=== PATIENT | male | born 1940 | race Caucasian/White ===

== ENCOUNTER 2016-07-12 16:32 | Inpatient (IN) | payer OTHER, MEDICARE ==
--- NOTE | 2016-07-12 16:36 | EDPHY ---
H & P HPI/ROS: CHIEF COMPLAINT: Dizziness, traumatic chest pain HISTORY OF PRESENT ILLNESS: The patient is an anticoagulated 75 y/o male arriving via EMS complaining of worsening intermittent dizziness and frequent falls over the last 6 weeks. He says his symptoms worsened 2 days ago and he was evaluated here in the ED. His reports he fell several times yesterday and at least 4 times today. He complains additionally of chest pain from hitting a dresser the other day. His dizziness began around the same time he switched from Metoprolol to Carvedilol. It is primarily provoked by turning his head to the side or moving quickly. He describes the room spinning but also says it feels like "I'm going to black out." He has associated nausea during the worst dizziness. He also feels globally weak, but denies unilateral weakness or paresthesias. He denies trauma, headache, fever, or cough. 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 His dizziness currently improved upon my assessment. REVIEW OF SYSTEMS: Constitutional: denies: chills, fever, recent illness, recent injury EENTM: see HPI Respiratory: denies: cough, shortness of breath Cardiac: denies: chest pain, irregular heart rate, lightheadedness, palpitations Gastrointestinal/Abdominal: denies: abdominal pain, diarrhea, nausea, vomiting, blood streaked stools Genitourinary: denies: dysuria, frequency, hematuria, pain Musculoskeletal: denies: joint pain, muscle pain Skin: denies: lesions, rash, jaundice, bruising Neurological: see HPI Hematologic/Lymphatic: denies: blood clots, easy bleeding, easy bruising Immunologic/allergic: denies: HIV/AIDS, transplant PRIOR MEDICAL HISTORY: Atrial fibrillation - Coumadin, Amyloidosis - kidneys, hypertension, angina Prior medical records reviewed including ED visit 07/09/16 for dizziness. SOCIAL HISTORY: at bedside Flame Hardener: Dr. Mars EXAM: GENERAL: Well-appearing, well-nourished and in no acute distress. HEAD: Atraumatic, normocephalic. EYES: Pupils equal round and reactive to light, extraocular movements intact, sclera anicteric, conjunctiva are normal, some horizontal nystagmus at rest ENT: TMs normal, nares patent, oropharynx clear without exudates. Moist mucous membranes. NECK: Normal range of motion, supple without lymphadenopathy or JVD. LUNGS: Breath sounds clear to auscultation bilaterally and equal. No wheezes rales or rhonchi. HEART: Regular rate and rhythm without murmurs, rubs or gallops. ABDOMEN: Soft, nontender, normoactive bowel sounds. No guarding, no rebound. No masses appreciated. BACK: No CVA tenderness, no spinal tenderness, step-offs or deformities EXTREMITIES: Normal range of motion, no pitting or edema. No clubbing or cyanosis. NEUROLOGICAL: Cranial nerves II through XII grossly intact. Normal speech, normal gait. 5/5 strength, normal movement in all extremities, normal sensation , normal [id number], normal [id number] PSYCH: Normal mood, normal affect. SKIN: Warm, dry, normal turgor, no visible rashes or lesions. Bruising to right arm. Source: Patient, Family, EMS - Medical/Surgical History Hx Asthma: No Hx Chronic Respiratory Disease: No Hx Diabetes: No Hx Cardiac Disease: No Hx Renal Disease: Yes Hx Cirrhosis: No Hx Alcoholism: No Hx HIV/AIDS: No Hx Splenectomy or Spleen Trauma: No Other PMH: amloidosis - Social History Smoking Status: Never smoked Drug Use: None Constitutional: Initial Vital Signs Temperature (C) 36.7 C 07/12/16 17:00 Heart Rate 65 07/12/16 17:00 Respiratory Rate 18 07/12/16 17:00 Blood Pressure 139/81 H 07/12/16 17:00 O2 Sat (%) 95 07/12/16 17:00 O2 Delivery Mode Room Air Allergies/Adverse Reactions: No Known Allergies Allergy (Unverified 07/09/16 15:51) Home Medications: Medication Instructions Recorded Amiodarone HCl [Pacerone (*)] 200 mg PO DAILY 07/12/16 Aspirin EC [Aspirin EC 81 mg (*)] 81 mg PO DAILY 07/12/16 Atorvastatin Calcium [Lipitor 10 10 mg PO DAILY 07/12/16 mg (*)] Calcitriol [Calcitriol (*)] 0.25 mcg PO MWF@07/12/16 Carvedilol [Coreg] 12.5 mg PO DAILY18 07/12/16 Carvedilol [Coreg] 25 mg PO DAILY@07/12/16 Cholecalciferol Vit D3 [Vitamin D3 2,000 units PO HS 12/30/16 2000 units tab (OTC)] Esomeprazole Magnesium [Nexium 22.3 mg PO DAILY 07/12/16 24Hr] Furosemide [Lasix 40 MG (*)] 40 mg PO MWF@09 07/12/16 Herbals/Supplements -Info Only 1 ea PO AD 07/12/16 Isosorbide Mononitrate [Isosorbide 60 mg PO DAILY 07/12/16 Mononitrate ER] Lisinopril [Zestril 10 mg (*)] 10 mg PO DAILY 07/12/16 Methylcellulose (with Sugar) 1 tsp PO DAILY PRN 07/12/16 [Citrucel Powder 19 gm (RX)] Nitroglycerin [Nitrostat 0.4 mg 0.4 mg SL Q5M PRN 07/12/16 (*)] Ondansetron Odt [Zofran Odt 4 mg 4 mg PO Q4 PRN 07/12/16 (*)] Sodium Bicarbonate [Na Bicarb 650 650 mg PO BID 07/12/16 MG (RX)] Warfarin Sodium [Coumadin 5MG (*)] 2.5 mg PO MWF@07/12/16 Warfarin Sodium [Coumadin 5MG (*)] 5 mg PO SUTUTHSA@07/12/16 amLODIPine BESYLATE [Norvasc 10 mg 10 mg PO DAILY 07/12/16 (*)] Medical Decision Making - Diagnostics EKG Interpretation: The 12 lead EKG was interpreted by myself. Sinus rhythm rate 62 with first degree AV block. No ischemia. See hard copy and/or "tracemaster" electronic copy for interpretation. Imaging: Study: MRI of the: Brain Indication: Dizziness Results: MRI scan of the body parts was obtained. The results of the study are Negative MRI of the brain without contrast. The study was read by the radiologist, Dr. Reich. I viewed the images myself on the PACS system. ED Course/Re-evaluation: MDM: 1640: Performed Priscilla maneuver in attempt to improve symptoms. Plan for brain MRI. Plan for IV, EKG, labs including CBC, CHEM, PTPTT. Administered 4mg IV Zofran and 1L IV NS for symptoms. Creatinine elevated at 2.1, which is baseline for this patient. 1814: Reassessed patient. He reports he has not had a recurrent episode of dizziness since the Priscilla maneuver. He does tell me he thinks is hallucinating and seeing things on the ceiling. MRI pending. 191: MRI is negative. However, patient began to feel vertiginous again upon sitting up from the MRI table. Plan for 50mg PO Meclizine and admission. 1932: Spoke with Dr. Bang, hospitalist. He accepts admission for vertigo. Differential Diagnosis: Partial list of the Differential diagnosis considered include but were not limited to; vertigo, stroke, CVA, aneurysm, hemorrhage and although unlikely based on the history and physical exam, I also considered seizure, infection, head injury, arrhythmia, acute coronary disease. - Data Points Laboratory Results: Laboratory Results 07/13/16 04:50 07/13/16 04:50 07/13/16 04:50 PT 23.2 H SEC (12.0-15.0) INR 2.04 H (0.83-1.16) Sodium 133 L mEq/L (134-144) Potassium 4.0 mEq/L (3.5-5.2) Chloride 100 mEq/L (97-110) Carbon Dioxide 23 mEq/l (22-31) Anion Gap 10 mEq/L (8-16) BUN 20 mg/dL (7-23) Creatinine 1.7 H mg/dL (0.7-1.3) Estimated GFR 39 Glucose 83 mg/dL (70-100) Calcium 8.7 mg/dL (8.5-10.4) Total Bilirubin 1.3 mg/dL (0.1-1.4) AST 22 IU/L (17-59) ALT 32 IU/L (21-72) Alkaline Phosphatase 50 IU/L (38-126) Troponin I 0.015 ng/mL (0-0.034) Total Protein 5.6 L g/dL (6.3-8.2) Albumin 3.5 g/dL (3.5-5.0) Medications Given: Discontinued Medications Carvedilol (Coreg) 25 mg PO DAILY@08 DINO Stop: 01/09/17 07:59 Last Admin: 07/13/16 10:05 Dose: 25 mg Sodium Chloride (Ns) 1,000 mls @ 0 mls/hr IV ONCE ONE PRN Reason: Wide Open Stop: 12/30/16 16:53 Last Admin: 07/12/16 17:15 Dose: 1,000 mls Meclizine HCl (Meclizine Hcl) 50 mg PO EDNOW ONE Stop: 07/12/16 19:21 Last Admin: 07/12/16 19:42 Dose: 50 mg Meclizine HCl (Meclizine Hcl) 25 mg PO Q6 DINO Stop: 01/09/17 11:59 Last Admin: 07/13/16 15:48 Dose: Not Given Ondansetron HCl (Zofran) 4 mg IVP EDNOW ONE Stop: 07/12/16 16:53 Last Admin: 07/12/16 18:14 Dose: Not Given Promethazine HCl (Phenergan) 12.5 mg PO ONCE ONE Stop: 07/13/16 11:38 Last Admin: 07/13/16 15:47 Dose: Not Given Departure - Departure Disposition: [facility] Acute Clinical Impression: Vertigo Condition: Fair Report Scribed for: Teddy Clayton Report Scribed by: Jalyn Christensen Date of Report: 07/12/16 Time of Report: 16:47
[2016-07-12] MEDS ORDERED: ONDANSETRON 4 MG/2 ML VIAL IVP ONE (16:52)
[2016-07-12] MEDS ORDERED: NS 1,000 ML IV ONE (16:52)
[2016-07-12 17:04] LABS: ANION GAP 14 mEq/L (8-16); CALCIUM 9.7 mg/dL (8.5-10.4); CARBON DIOXIDE 26 mEq/l (22-31); CHLORIDE 95 mEq/L (97-110); CREATININE 2.1 mg/dL (0.7-1.3); GLOMERULAR FILTRATION RATE 31; GLUCOSE 102 mg/dL (70-100); SODIUM 135 mEq/L (134-144)
[2016-07-12 17:08] LABS: % IMMATURE GRANULYOCYTES 0.6 % (0.0-1.1); ABSOLUTE IMMATURE GRANULOCYTES 0.06 10^3/uL (0.00-0.10); ADD DIFF? NO; ADD MORPH? NO; ADD SCAN? NO; ATYPICAL LYMPHOCYTE FLAG 0 (0-99); FRAGMENT RBC FLAG 0 (0-99); HEMATOCRIT 46.9 % (40.0-51.0); HEMOGLOBIN 16.9 g/dL (13.7-17.5); LEFT SHIFT FLG 0 (0-99); LIPEMIA HEMOLYSIS FLAG 90 (0-99); MEAN CELL HEMOGLOBIN 33.8 pg (27.9-34.1); MEAN CELL VOLUME 93.8 fL (81.5-99.8); MEAN PLATELET VOLUME 9.5 fL (8.7-11.7); PLATELET CLUMPS FLAG 0 (0-99); PLATELET COUNT 183 10^3/uL (150-400); RED CELL DISTRIBUTION WIDTH 12.6 % (11.5-15.2)
--- NOTE | 2016-07-12 17:11 | CPEKG ---
Heart Rate: 61 RR Interval: 984 P-R Interval: 220 QRSD Interval: 98 QT Interval: 448 QTC Interval: 452 P Stevens: 31 QRS Stevens: 8 T Wave Stevens: 48 EKG Severity - ABNORMAL ECG - EKG Impression: SINUS RHYTHM EKG Impression: FIRST DEGREE AV BLOCK EKG Impression: LOW VOLTAGE IN FRONTAL LEADS Electronically Signed By: Teddy Clayton 12-Jul-2016 17:13:23
[2016-07-12 17:15] LABS: TROPONIN I < 0.012 ng/mL (0-0.034)
[2016-07-12 17:38] LABS: APTT 34.5 SEC (23.0-38.0); INR 1.83 (0.83-1.16); PROTIME(PATIENT) 21.2 SEC (12.0-15.0)
--- NOTE | 2016-07-12 19:14 | MR ---
MRI of the Brain (Without Contrast) July 12, 2016 Clinical Indication: Vertigo. Possible CVA.. Technique: T1-weighted images were acquired axially and sagittally from the foramen magnum to the ve rtex. Axial FLAIR, fast T2-weighted, and diffusion-weighted axial images were obtained without contr ast. Findings: The ventricles, cisterns, and sulci are normal without atrophy, hydrocephalus, midline bryson ft, herniation, or epidural/subdural hematomas. Mild white matter microvascular ischemic gliosis is c ompatible with age. No intracranial hemorrhage or masses. Diffusion-weighted sequence demonstrates no acute infarct. Cerebellar tonsils are in normal position. Pituitary gland is normal in size. Normal signal flow void in the superior sagittal sinus, basilar artery, and bilateral internal carotid arter ies indicating patency. Paranasal sinuses and mastoid air cells are clear. Impression: Negative MRI of the brain without contrast. Results called to Dr. Clayton at 7:10 p.m.
[2016-07-12] MEDS ORDERED: MECLIZINE HCL 25 MG TAB PO ONE (19:20)
[2016-07-12] MEDS ORDERED: ONDANSETRON DISINTEGRATING 4 MG TAB PO PRN (19:48)
[2016-07-12] MEDS ORDERED: ACETAMINOPHEN 325 MG TAB PO PRN (19:48)
[2016-07-12] MEDS ORDERED: MECLIZINE HCL 25 MG TAB PO PRN ×2 (19:50→21:03)
[2016-07-12] MEDS ORDERED: DIAZEPAM 2 MG TAB PO PRN (21:02)
--- NOTE | 2016-07-12 21:12 | US ---
Bilateral Duplex Carotid Sonography Clinical Indications: Possible CVA versus TIA. Technique: The cervical portions of the carotid and vertebral arteries were imaged and interrogated by color and pulsed Doppler. Spectral analysis was performed. Findings Right Carotid: The common carotid artery, bifurcation, and origin of the internal and external carot id artery are well imaged. Doppler velocity estimates and color Doppler spectra are normal. Maximum peak systolic velocity in the right internal carotid artery is 48 cm/sec. No evidence of flow-limit ing stenosis. Left Carotid: The common carotid artery, bifurcation, and origin of the internal and external caroti d artery are well imaged. Hypoechoic intraluminal material involves the left carotid bifurcation and proximal ICA, with the sonographic features suggestive of a large volume of soft plaque versus focal hemorrhage such as localized dissection. There is moderate luminal narrowing of the left proximal I CA, without significant velocity change to suggest flow-limiting disease. Maximum peak systolic [place] in the left ICA is 85 cm/sec. Vertebral Arteries: Antegrade flow is shown by pulsed Doppler of each vertebral artery. Impression: Prominent hypoechoic material involving the left carotid bulb and proximal ICA suggestiv e of soft plaque or hemorrhage potentially related to focal dissection. Secondary moderate luminal na rrowing is present, without Doppler velocity change. Consider CT angiography acutely or follow-up Doppler sonogram for further characterization of these f indings, as clinically appropriate. Measurement of carotid stenosis is based on velocity parameters that correlate the residual internal carotid diameter with [place] Symptomatic Carotid Endarterectomy Trial (NASCET) based stenosis levels.
--- NOTE | 2016-07-12 22:22 | PDGENHP ---
History and Physical - Chief Complaint Acute dizziness - History of Present Illness PCP: Dr. Nguyen Computer Operations Technician: Dr. Mars Carbon Furnace Operator: Dr. Horne HPI: 75-year-old male presents with acute dizziness characterized as a room spinning sensation and feeling like he is going to blackout with associated nausea and weakness as well as resultant falls. He reports that his symptoms began approximately 2 weeks ago and occurred in the context of recent medication adjustments of his antihypertensives under the direction Dr. Horne. He denies any preceding URI symptoms or any other illnesses. His dizziness is exacerbated by standing upright, head movements, movement. His dizziness is somewhat alleviated by remaining still and supine. He was evaluated for these symptoms by Dr. Nguyen as well as our emergency department and he was prescribed Zofran which has not particularly modified his symptoms. He reports that his symptoms have result in significant falls and chest trauma, resulting in bruises on his chest and his arms as well as pain located on his left anterior chest wall. History Information - Allergies/Home Medication List Allergies/Adverse Reactions: No Known Allergies Allergy (Unverified 07/09/16 15:51) Home Medications: Amiodarone HCl [Pacerone (*)] 200 mg PO DAILY 07/12/16 [Last Taken 07/11/16] Aspirin EC [Aspirin EC 81 mg (*)] 81 mg PO DAILY 07/12/16 [Last Taken 07/11/16] Atorvastatin Calcium [Lipitor 10 mg (*)] 10 mg PO DAILY 07/12/16 [Last Taken ] Calcitriol [Calcitriol (*)] 0.25 mcg PO MWF@07/12/16 [Last Taken 07/10/16] Carvedilol [Coreg] 12.5 mg PO DAILY18 07/12/16 [Last Taken 07/11/16] Carvedilol [Coreg] 25 mg PO DAILY@08 07/12/16 [Last Taken 07/11/16] Cholecalciferol Vit D3 [Vitamin D3 2000 units tab (OTC)] 2,000 units PO HS 07/12 [Last Taken 07/11/16] Esomeprazole Magnesium [Nexium 24Hr] 22.3 mg PO DAILY 07/12/16 [Last Taken 07/11] Furosemide [Lasix 40 MG (*)] 40 mg PO MWF@07/12/16 [Last Taken 07/10/16] Herbals/Supplements -Info Only 1 ea PO AD 07/12/16 [Last Taken Unknown] Isosorbide Mononitrate [Isosorbide Mononitrate ER] 60 mg PO DAILY 07/12/16 [ Last Taken 07/11/16] Lisinopril [Zestril 10 mg (*)] 10 mg PO DAILY 07/12/16 [Last Taken 07/11/16] Methylcellulose (with Sugar) [Citrucel Powder 19 gm (RX)] 1 tsp PO DAILY PRN [Last Taken Unknown] Nitroglycerin [Nitrostat 0.4 mg (*)] 0.4 mg SL Q5M PRN 07/12/16 [Last Taken Unknown] Ondansetron Odt [Zofran Odt 4 mg (*)] 4 mg PO Q4 PRN 07/12/16 [Last Taken Unknown] Sodium Bicarbonate [Na Bicarb 650 MG (RX)] 650 mg PO BID 07/12/16 [Last Taken ] Warfarin Sodium [Coumadin 5MG (*)] 2.5 mg PO MWF@21 07/12/16 [Last Taken ] Warfarin Sodium [Coumadin 5MG (*)] 5 mg PO SUTUTHSA@21 07/12/16 [Last Taken ] amLODIPine BESYLATE [Norvasc 10 mg (*)] 10 mg PO DAILY 07/12/16 [Last Taken ] I have personally reviewed and updated: family history, medical history, social history, surgical history - Past Medical History atrial fibrillation, hypertension Additional medical history: Amyloid nephropathy, 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, currently with chronic kidney disease stage 3 with baseline creatinine 1.9-2.4 - Surgical History Reports: no pertinent surgical hx - Family History Additional family history: No family history of neurologic disorders - Social History Smoking Status: Never smoked Alcohol Use: None Drug Use: None Additional social history: Normally physically independent but has been somewhat limited recently secondary to symptoms Review of Systems ROS: 10pt was reviewed & negative except for what was stated in HPI & below Constitutional: Reports: weakness Gastrointestinal: Reports: nausea Neurological: Reports: other (Dizziness) Physical Exam Temp Pulse Resp BP Pulse Ox 37.3 C 64 16 149/85 H 14 L 07/12/16 21:46 07/12/16 21:46 07/12/16 21:46 07/12/16 21:46 07/12/16 21:46 Constitutional: no apparent distress, appears nourished, not in pain, uncomfortable Eyes: PERRL, anicteric sclera, EOMI Ears, Nose, Mouth, Throat: hearing normal, no oral mucosal ulcers, other (Tacky mucous membranes, significant amount of cerumen in right ear without visible fluid posterior to the memory) Cardiovascular: regular rate and rhythym, no murmur, rub, or gallop, No irregularly irregular, No tachycardia, No edema Respiratory: no respiratory distress, no rales or rhonchi, clear to auscultation Gastrointestinal: normoactive bowel sounds, soft, non-tender abdomen, no palpable masses Skin: other (Bruises over the left chest and right upper extremity without surrounding erythema) Musculoskeletal: other (Tenderness over the left ribs without any bony abnormalities) Neurologic: AAOx3, sensation intact bilaterally, other (Right-sided nystagmus horizontal), No weakness (Motor 5/5 bilateral upper and lower extremities), No facial droop Psychiatric: interacting appropriately, not anxious, not encephalopathic, thought process linear Lab Data & Imaging Review 07/12/16 16:40 07/12/16 16:40 WBC 10.70 10^3/uL (3.80-9.50) H 07/12/16 16:40 RBC 5.00 10^6/uL (4.40-6.38) 07/12/16 16:40 Hgb 16.9 g/dL (13.7-17.5) 07/12/16 16:40 Hct 46.9 % (40.0-51.0) 07/12/16 16:40 MCV 93.8 fL (81.5-99.8) 07/12/16 16:40 MCH 33.8 pg (27.9-34.1) 07/12/16 16:40 MCHC 36.0 g/dL (32.4-36.7) 07/12/16 16:40 RDW 12.6 % (11.5-15.2) 07/12/16 16:40 Plt Count 183 10^3/uL (150-400) 07/12/16 16:40 MPV 9.5 fL (8.7-11.7) 07/12/16 16:40 Neut % (Auto) 81.1 % (39.3-74.2) H 07/12/16 16:40 Lymph % (Auto) 8.9 % (15.0-45.0) L 07/12/16 16:40 [place] % (Auto) 8.8 % (4.5-13.0) 07/12/16 16:40 Eos % (Auto) 0.3 % (0.6-7.6) L 07/12/16 16:40 Baso % (Auto) 0.3 % (0.3-1.7) 07/12/16 16:40 Nucleat RBC Rel Count 0.0 % (0.0-0.2) 07/12/16 16:40 Absolute Neuts (auto) 8.69 10^3/uL (1.70-6.50) H 07/12/16 16:40 Absolute Lymphs (auto) 0.95 10^3/uL (1.00-3.00) L 07/12/16 16:40 Absolute Monos (auto) 0.94 10^3/uL (0.30-0.80) H 07/12/16 16:40 Absolute Eos (auto) 0.03 10^3/uL (0.03-0.40) 07/12/16 16:40 Absolute Basos (auto) 0.03 10^3/uL (0.02-0.10) 07/12/16 16:40 Absolute Nucleated RBC 0.00 10^3/uL (0-0.01) 07/12/16 16:40 Immature Gran % 0.6 % (0.0-1.1) 07/12/16 16:40 Immature Gran # 0.06 10^3/uL (0.00-0.10) 07/12/16 16:40 PT 21.2 SEC (12.0-15.0) H 07/12/16 16:40 INR 1.83 (0.83-1.16) H 07/12/16 16:40 APTT 34.5 SEC (23.0-38.0) 07/12/16 16:40 Sodium 135 mEq/L (134-144) 07/12/16 16:40 Potassium 4.0 mEq/L (3.5-5.2) 07/12/16 16:40 Chloride 95 mEq/L (97-110) L 07/12/16 16:40 Carbon Dioxide 26 mEq/l (22-31) 07/12/16 16:40 Anion Gap 14 mEq/L (8-16) 07/12/16 16:40 BUN 25 mg/dL (7-23) H 07/12/16 16:40 Creatinine 2.1 mg/dL (0.7-1.3) H 07/12/16 16:40 Estimated GFR 31 07/12/16 16:40 Glucose 102 mg/dL (70-100) H 07/12/16 16:40 Calcium 9.7 mg/dL (8.5-10.4) 07/12/16 16:40 Troponin I < 0.012 ng/mL (0-0.034) 07/12/16 16:40 Visualized and Interpreted EKG results: Yes EKG additional interpertation: First-degree AV block, low voltage in frontal leads Assessment & Plan Assessment: 75-year-old male presents with acute vertiginous symptoms suspected to be secondary to BPPV versus labyrinthitis in the setting of chronic kidney disease stage 3 and known amyloid disorder Plan: 1. Suspected BPPV. Acute, new problem this provider, further workup indicated. Evidenced by positive [place]-Hallpike plus positional vertigo -get carotid and posterior circulation ultrasounds -check orthostatics given his history of medication adjustments in the context of his symptom onset -trial meclizine and Valium for symptom relief as well as scheduled cetirizine -Zofran and Phenergan for nausea relief -physical therapy with Priscilla maneuver if obtainable -posterior CVA ruled out with MRI 2. Chronic kidney disease stage 3. Secondary to amyloid, baseline 1.9-2.4 -continue to monitor creatinine level 3. Chronic hypertension. Continue home medications, continue to monitor blood pressure, check orthostatics as outlined above 4. Atrial fibrillation. Unclear type, continue home medications 5. Leukocytosis. Unclear etiology, may be reactive in the setting of recent viral illness versus secondary to his amyloid disease, may require outpatient Hematology consultation if this is been a chronic on investigated issue Diet. Regular Prophylaxis. Moderate risk, heparin subcu Code. Full Disposition. Anticipated discharge is 07/13/2016, pending further workup and stabilization of above. I have discussed the patient's presentation with Dr. Clayton, he reports he the patient is unable to safely ambulate and he requires significant assistance in the emergency department, remains a high fall risk and must be observed overnight. I reviewed outside records including 07/09/[address] Rudy Hernandez and his impression of the patient was also BPPV versus viral URI, prescribed Zofran.
[2016-07-12] MEDS: CETIRIZINE 10 MG TAB PO SCH (22:23)
[2016-07-12] MEDS ORDERED: [UNRECOGNIZED DRUG - OTHER] PO PRN (22:30)
[2016-07-12] MEDS ORDERED: WARFARIN SODIUM 5 MG TAB PO SCH (22:30)
[2016-07-12] MEDS ORDERED: METHYLCELLULOSE PO PRN (22:30)
[2016-07-12] MEDS ORDERED: NITROGLYCERIN 0.4 MG BTL SL PRN (22:30)
[2016-07-12] MEDS ORDERED: NON-FORMULARY NEW DRUG (Carvedilol [Coreg] 12.5 MG) PO SCH (22:30)
[2016-07-12] MEDS ORDERED: Herbals/Supplements -Info Only PO SCH (22:30)
[2016-07-12] MEDS ORDERED: BENEFIBER/NUTRISOURCE FIBER PKT 1 EACH PO PRN (22:43)
[2016-07-12] MEDS: SODIUM BICARBONATE 650 MG TAB PO SCH (23:32)
[2016-07-13 05:18] LABS: ABSOLUTE IMMATURE GRANULOCYTES 0.09 10^3/uL (0.00-0.10); ADD DIFF? NO; ADD MORPH? NO; ADD SCAN? NO; ATYPICAL LYMPHOCYTE FLAG 0 (0-99); FRAGMENT RBC FLAG 0 (0-99); HEMATOCRIT 44.4 % (40.0-51.0); HEMOGLOBIN 16.2 g/dL (13.7-17.5); LEFT SHIFT FLG 0 (0-99); LIPEMIA HEMOLYSIS FLAG 90 (0-99); MEAN CELL HEMOGLOBIN 34.2 pg (27.9-34.1); MEAN CELL HEMOGLOBIN CONCENTR. 36.5 g/dL (32.4-36.7); MEAN CELL VOLUME 93.7 fL (81.5-99.8); MEAN PLATELET VOLUME 9.1 fL (8.7-11.7); PLATELET CLUMPS FLAG 0 (0-99); PLATELET COUNT 148 10^3/uL (150-400); RED BLOOD CELL COUNT 4.74 10^6/uL (4.40-6.38); RED CELL DISTRIBUTION WIDTH 12.1 % (11.5-15.2)
[2016-07-13 05:32] LABS: INR 2.04 (0.83-1.16); PROTIME(PATIENT) 23.2 SEC (12.0-15.0)
[2016-07-13 06:40] LABS: ALANINE AMINOTRANSFERASE 32 IU/L (21-72); ALBUMIN 3.5 g/dL (3.5-5.0); ALKALINE PHOSPHATASE 50 IU/L (38-126); ANION GAP 10 mEq/L (8-16); ASPARTATE AMINOTRANSFERASE 22 IU/L (17-59); BILIRUBIN,TOTAL 1.3 mg/dL (0.1-1.4); CALCIUM 8.7 mg/dL (8.5-10.4); CARBON DIOXIDE 23 mEq/l (22-31); CHLORIDE 100 mEq/L (97-110); CREATININE 1.7 mg/dL (0.7-1.3); GLOMERULAR FILTRATION RATE 39; GLUCOSE 83 mg/dL (70-100); SODIUM 133 mEq/L (134-144); TOTAL PROTEIN 5.6 g/dL (6.3-8.2)
[2016-07-13 06:51] LABS: TROPONIN I 0.015 ng/mL (0-0.034)
[2016-07-13] MEDS ORDERED: CARVEDILOL 25 MG TAB PO SCH ×2 (08:00→15:35)
[2016-07-13] MEDS ORDERED: CARVEDILOL 25 MG PO SCH (08:00)
[2016-07-13] MEDS ORDERED: NON-FORMULARY NEW DRUG (Isosorbide Mononitrate [Isosorbide Mononitrate Er] 60 MG) PO SCH (09:00)
[2016-07-13] MEDS ORDERED: NON-FORMULARY NEW DRUG (Esomeprazole Magnesium [Nexium 24hr] 22.3 MG) PO SCH (09:00)
[2016-07-13] MEDS: SODIUM BICARBONATE 650 MG TAB PO SCH ×2 (11:17→21:19)
[2016-07-13] MEDS: LISINOPRIL 10 MG TAB PO SCH (11:17)
[2016-07-13] MEDS: ATORVASTATIN CALCIUM 10 MG TAB PO SCH (11:18)
[2016-07-13] MEDS: ISOSORBIDE MONONITRATE 30 MG TAB.SR PO SCH (11:18)
[2016-07-13] MEDS: PANTOPRAZOLE SODIUM 40 MG TAB PO SCH (11:19)
[2016-07-13] MEDS: ASPIRIN EC 81 MG TAB PO SCH (11:20)
[2016-07-13] MEDS ORDERED: PROMETHAZINE HCL 25 MG TAB PO ONE (11:37)
[2016-07-13] MEDS ORDERED: MECLIZINE HCL 25 MG TAB PO SCH (12:00)
[2016-07-13] MEDS: AMIODARONE HCL 200 MG TAB PO SCH (12:25)
--- NOTE | 2016-07-13 13:13 | HOSPPROG ---
Hospitalist Progress Note Assessment/Plan: 75-year-old male presents with acute vertiginous symptoms in the setting of chronic kidney disease stage 3 and known amyloid disorder. This is my first encounter with the patient. Chart reviewed. Discussed with Dr. Krueger. Plan: 1. Dizziness -carotid and posterior circulation ultrasounds are abnormal, reviewed with Dr. Krueger - will obtain MRA of the head and neck secondary to chronic kidney disease -check orthostatics given his history of medication adjustments in the context of his symptom onset -meclizine and Valium have not provided symptom relief -Zofran and Phenergan for nausea relief -physical therapy with Priscilla maneuver, failed see report -posterior CVA ruled out with MRI 2. Chronic kidney disease stage 3. Secondary to amyloid, baseline 1.9-2.4 -continue to monitor creatinine level -creatinine 1.7 today 3. Chronic hypertension. Continue home medications, continue to monitor blood pressure, check orthostatics as outlined above -consider cardiology consult patient's primary nutritionists is Jeferson Mars 4. Atrial fibrillation. Unclear type, continue home medications 5. Leukocytosis. Resolved 6. Left hand numbness -intermittent -worse when sitting at the edge of the bed Diet. Renal Prophylaxis. Moderate risk, on Coumadin and aspirin Code. Full Disposition. Admit to inpatient status Patient requires more aggressive in-house evaluation Consult Dr. Krueger of Neurology MRA head neck reviewed with pt and family Subjective: Feels terrible. Still feeling dizzy and weak. No nausea. No pain. C/ O left hand tingling. Objective: Vital Signs Temp Pulse Resp BP Pulse Ox 38.0 C 67 18 117/68 91 L 07/13/16 11:23 07/13/16 11:23 07/13/16 11:23 07/13/16 12:25 07/13/16 11:23 Laboratory Results 07/13/16 04:50 07/13/16 04:50 07/12/16 07/13/16 07/14/16 05:59 05:59 05:59 Intake Total 1000 Output Total 150 Balance 850 PT 23.2 SEC (12.0-15.0) H 07/13/16 04:50 INR 2.04 (0.83-1.16) H 07/13/16 04:50 - Physical Exam Constitutional: not in pain, chronically ill appearing, uncomfortable Eyes: PERRL, anicteric sclera, EOMI Ears, Nose, Mouth, Throat: moist mucous membranes, hearing normal, ears appear normal Cardiovascular: regular rate and rhythym, No JVD, No edema Respiratory: no respiratory distress, no rales or rhonchi, reduced air movement Gastrointestinal: normoactive bowel sounds, No tenderness, No ascites Skin: warm, normal color, No erythema Musculoskeletal: normal joint ROM, abnormal gait, generalized weakness Neurologic: AAOx3, numbness Psychiatric: interacting appropriately, not encephalopathic, thought process linear ICD10 Worksheet Patient Problems: Problems Problem Status Diagnosed Vertigo Acute
[2016-07-13] MEDS ORDERED: MECLIZINE HCL 25 MG TAB PO PRN (14:21)
--- NOTE | 2016-07-13 15:23 | GCON ---
[f rep st] CONSULTATION NEUROLOGY CONSULT CHIEF COMPLAINT: Abnormal carotid ultrasound. HISTORY OF PRESENT ILLNESS: The patient is a very pleasant 75-year-old gentleman who has a fairly complex medical history including amyloid disease causing chronic kidney disease. He has atrial fibrillation, on chronic anticoagulation. In the patient's own words, he began feeling chronically nauseated around 2 weeks ago when his metoprolol was switched to carvedilol. He states almost immediately after this switch in antihypertensive medication he began feeling generally bad with nausea and decreased appetite with an orthostatic component. He specifically endorsed feeling more dizzy when he stands up, and it is definitely improved when lying supine. He saw his physician as an outpatient for these symptoms. His carvedilol was decreased apparently, but the symptoms persisted and ultimately was sent to the emergency department. He had an MRI brain performed yesterday, which showed no acute infarct. It was fairly unremarkable for age and known medical history. The main reason for consultation is the patient's carotid ultrasound, which reported prominent hypoechoic material involving the left carotid bulb and proximal ICA, suggestive of a soft plaque or hemorrhage potentially related to focal dissection. Secondary moderate luminal narrowing was present without Doppler velocity change. The patient does not have any focal neurologic symptoms by way of his history. He has primarily "nausea." No lateralized weakness, numbness, language or vision symptoms. REVIEW OF SYSTEMS: A 10-point review of systems was performed and only pertinents in the HPI. PAST MEDICAL HISTORY, SOCIAL HISTORY, FAMILY HISTORY, HOME MEDICATIONS, AND ALLERGIES: Please refer to the admitting history and physical. PHYSICAL EXAM: VITAL SIGNS: The patient did have orthostatic vital signs taken. While lying down, his blood pressure was 157/93 with a heart rate of 83 ; when sitting, it was 129/85 with a heart rate of 86; and, when standing up, it was 116/81 with a heart rate of 102, consistent with abnormal orthostatics with greater than a 40 mmHg drop in systolic pressure from lying to standing. Temperature 37.4, respiration rate 18. GENERAL: No acute distress. Very pleasant. NEUROLOGIC EXAM: HIGHER MENTAL FUNCTION: Awake and alert. No aphasia. Names 5/5. Repeats 5/5. Follows commands 5/5. CRANIAL NERVES: Normal 2 through 7, 11, and 12. MOTOR: Normal strength, tone, and deep tendon reflexes throughout. No pronator drift. SENSORY: Normal to light touch in all 4 extremities. COORDINATION: Normal yjukye-kdtl-lxoacv and veyx-xf-oemj bilaterally. IMPRESSION AND PLAN: 1. Abnormal carotid ultrasound. 2. Chronic atrial fibrillation, on anticoagulation with therapeutic INR of 2.04. 3. Nausea. 4. Orthostatic hypotension. My overall impression is that the patient's presenting symptomatology is due to orthostatic hypotension from his change from metoprolol to carvedilol. He has positive orthostatics here in the hospital. In the background, the patient has chronic atrial fibrillation, is on warfarin with a therapeutic INR of 2.04. In addition, the patient is on aspirin daily with his anticoagulant. The primary reason for consultation is abnormal carotid ultrasound. This certainly needs to be followed up on. We have ordered a stat MRA of the head and neck. He is fully anticoagulated in any case, in terms of possible incidental dissection. I have discussed the plan with the patient and his primary hospitalist. We will be in close touch regarding the MRA results. We certainly may consult with Vascular Surgery/General Surgery depending on what we find to give further recommendations. Otherwise, he will continue his medications as prescribed. Lastly, we discussed touching base with Cardiology to adjust his antihypertensive medications. No further recommendations for now. We will follow up on the above as outlined. Thank you for this consultation. /[id number]/MODL MTDD
[2016-07-13] MEDS ORDERED: CARVEDILOL 6.25 MG TAB PO SCH (18:00)
--- NOTE | 2016-07-13 18:36 | MR ---
MR Arteriogram of the [place] Clinical Indications: 75-year-old male with medically-controlled hypertension who had some dizziness and visual impairment with negative MR imaging of the brain on July 12, 2016; however, carotid du plex sonography suggested some hypoechoic material involving the left carotid bulb and the proximal i nternal carotid artery (without a Doppler velocity change). Rule out possible stenosis or a localized dissection. The patient has impaired renal function, and cannot have IV contrast media. Technique: A luga-ei-gyvhfl gradient echo technique was used for thin axial images at the skull base for evaluation of the major vessels of the [place]. A three-dimensional technique was used , and images were manipulated by the radiologist at the computer workstation. Findings: The major vessels of the [place] are adequately displayed, demonstrating no eviden ce of an aneurysm, vascular malformation, a flow-limiting stenosis, or an occlusion. Impression: Negative MRA of the [place]. MR Angiogram of the Neck without Contrast Technique: IV contrast was withheld because of the patient's renal insufficiency. Sagittal 2-D phase contrast manufacturing laborer images were initially acquired. T2 FSE fat-saturated "black blood for dissection" axi al images were acquired, as well as coronal "Inhance 3-D velocity" sequences were obtained, and maxim al intensity pixel projection (MIPP) images were manipulated by the radiologist at the computer works tation. Axial DWI sequences of the brain were also acquired. Findings: There is suboptimal assessment of the origins of the great vessels off the aortic arch. Th e common carotid arteries and the vertebral arteries are patent, and the common carotid bifurcations demonstrate no evidence of a flow-limiting stenosis or occlusion. However, on axial series 7, images 12-14, there is an asymmetric crescentic hyperintense signal in the wall surrounding a short segment of the left carotid bulb and the proximal internal carotid artery, and a regional nonstenosing intim al flap cannot therefore not be excluded. The vertebral arteries are patent, without evidence of obst ruction or dissection. A sagittal FSE 3-D plane T2 weighted image reveals some mild degenerative cent ral canal stenosis at C5-C6 and trace anterolisthesis at C7-T1. Multilevel degenerative disk desiccat ion is observed. On axial series 4, images 29-30, there are a couple of punctate foci of restricted d iffusion in the inferomedial left cerebellum, suggestive of lacunar infarcts. Impression: 1. MRA of the cervical carotids and vertebrals demonstrates no evidence of a flow-limiting stenosis, although there is some abnormal arterial signal intensity suggestive of a small focal intramural bridget tamiko involving the left carotid bulb and the proximal left internal carotid artery at the site of the recently-seen duplex carotid sonographic abnormality. 2. Suspect tiny lacunar infarcts in the inferomedial left cerebellum. I attempted to convey this information to Dr. Pepe Krueger, and was able to communicate it directly to the hospitalist Dr. Mario Castañeda at 6:30 p.m. on July 13, 2016. Measurements of carotid stenosis is based on the residual internal carotid diameter with [place] an Symptomatic Carotid Endarterectomy Trial (NASCET) based stenosis levels.
--- NOTE | 2016-07-13 18:36 | MR ---
MR Arteriogram of the [place] Clinical Indications: 75-year-old male with medically-controlled hypertension who had some dizziness and visual impairment with negative MR imaging of the brain on July 12, 2016; however, carotid du plex sonography suggested some hypoechoic material involving the left carotid bulb and the proximal i nternal carotid artery (without a Doppler velocity change). Rule out possible stenosis or a localized dissection. The patient has impaired renal function, and cannot have IV contrast media. Technique: A bsfo-za-zjwrrk gradient echo technique was used for thin axial images at the skull base for evaluation of the major vessels of the [place]. A three-dimensional technique was used , and images were manipulated by the radiologist at the computer workstation. Findings: The major vessels of the [place] are adequately displayed, demonstrating no eviden ce of an aneurysm, vascular malformation, a flow-limiting stenosis, or an occlusion. Impression: Negative MRA of the [place]. MR Angiogram of the Neck without Contrast Technique: IV contrast was withheld because of the patient's renal insufficiency. Sagittal 2-D phase contrast furniture mover images were initially acquired. T2 FSE fat-saturated "black blood for dissection" axi al images were acquired, as well as coronal "Inhance 3-D velocity" sequences were obtained, and maxim al intensity pixel projection (MIPP) images were manipulated by the radiologist at the computer works tation. Axial DWI sequences of the brain were also acquired. Findings: There is suboptimal assessment of the origins of the great vessels off the aortic arch. Th e common carotid arteries and the vertebral arteries are patent, and the common carotid bifurcations demonstrate no evidence of a flow-limiting stenosis or occlusion. However, on axial series 7, images 12-14, there is an asymmetric crescentic hyperintense signal in the wall surrounding a short segment of the left carotid bulb and the proximal internal carotid artery, and a regional nonstenosing intim al flap cannot therefore not be excluded. The vertebral arteries are patent, without evidence of obst ruction or dissection. A sagittal FSE 3-D plane T2 weighted image reveals some mild degenerative cent ral canal stenosis at C5-C6 and trace anterolisthesis at C7-T1. Multilevel degenerative disk desiccat ion is observed. On axial series 4, images 29-30, there are a couple of punctate foci of restricted d iffusion in the inferomedial left cerebellum, suggestive of lacunar infarcts. Impression: 1. MRA of the cervical carotids and vertebrals demonstrates no evidence of a flow-limiting stenosis, although there is some abnormal arterial signal intensity suggestive of a small focal intramural bridget tamiko involving the left carotid bulb and the proximal left internal carotid artery at the site of the recently-seen duplex carotid sonographic abnormality. 2. Suspect tiny lacunar infarcts in the inferomedial left cerebellum. I attempted to convey this information to Dr. Pepe Krueger, and was able to communicate it directly to the hospitalist Dr. Mario Castañeda at 6:30 p.m. on July 13, 2016. Measurements of carotid stenosis is based on the residual internal carotid diameter with [place] an Symptomatic Carotid Endarterectomy Trial (NASCET) based stenosis levels.
--- NOTE | 2016-07-13 20:52 | HOSPPROG ---
Hospitalist Progress Note Assessment/Plan: discussed mri findings w dr de la cruz. L sided cerebellar lesions which may explain dizziness L carotid w no dissection, no occlusion but possibile intrmural hematoma no further action tonight follow up in AM on final read Objective: Vital Signs Temp Pulse Resp BP Pulse Ox 36.5 C 62 18 95/55 L 91 L 07/13/16 20:00 07/13/16 20:00 07/13/16 20:00 07/13/16 20:00 07/13/16 20:00 07/12/16 07/13/16 07/14/16 05:59 05:59 05:59 Intake Total 640 Output Total 300 Balance 340 PT 23.2 SEC (12.0-15.0) H 07/13/16 04:50 INR 2.04 (0.83-1.16) H 07/13/16 04:50 ICD10 Worksheet Patient Problems: Problems Problem Status Diagnosed Vertigo Acute
[2016-07-13] MEDS: WARFARIN SODIUM 5 MG TAB PO SCH (21:19)
[2016-07-13] MEDS: CETIRIZINE 10 MG TAB PO SCH (21:20)
[2016-07-13] MEDS: CHOLECALCIFEROL VIT D3 2,000 UNITS TAB/CAP PO SCH (21:20)
[2016-07-14] MEDS ORDERED: 1/2 NS 1,000 ML IV SCH (10:30)
[2016-07-14] MEDS: SODIUM BICARBONATE 650 MG TAB PO SCH ×2 (10:41→20:38)
[2016-07-14] MEDS: PANTOPRAZOLE SODIUM 40 MG TAB PO SCH (10:41)
[2016-07-14] MEDS: ASPIRIN EC 81 MG TAB PO SCH (10:41)
[2016-07-14] MEDS: ATORVASTATIN CALCIUM 10 MG TAB PO SCH (10:41)
[2016-07-14] MEDS: LISINOPRIL 10 MG TAB PO SCH (10:43)
[2016-07-14] MEDS: AMIODARONE HCL 200 MG TAB PO SCH (10:44)
[2016-07-14] MEDS: ISOSORBIDE MONONITRATE 30 MG TAB.SR PO SCH (10:49)
--- NOTE | 2016-07-14 11:29 | GHP ---
[f rep st] HISTORY AND PHYSICAL DATE OF ADMISSION: 07/13/2016 CHIEF COMPLAINT: Dizziness, history of amyloid, and atrial fibrillation. HPI: This is a very pleasant 75-year-old patient who is usually followed by my partner, Dr. Mars . He was last seen in June. He has a long history of paroxysmal atrial fibrillation, which has b een well controlled on amiodarone and Coumadin. He has a history of amyloidosis with orthostatic hyp otension and chronic renal insufficiency. Apparently, his beta-codi regimen has been changed by Isak Horne and Jerad over the last month with a change from metoprolol to carvedilol in increasin g doses a few weeks ago. He has been having dizzy episodes. He was seen in the emergency room. [place], thought to be possibly a URI, but these continued to occur. He was seen by his primary care ph ysician and eventually came to the emergency room, where he was admitted for these "dizziness, almost blackout spells." He has had some nausea and weakness as well. His EKG shows normal sinus rhythm. On the monitor, he has been in sinus rhythm. He denies any atrial fibrillation. He is very complian t with his home medications. Workup has included a neurologic consult. Nephrology is pending. MRI of his head showed lacunar infarcts in his cerebellum, which may be causative here. The question alicja ins if this is caused by low blood pressure, intrinsic [place], vessel disease, or embolic phenomenon. A t this point, he is sitting comfortable and no complaints. He does have a remote history of a nuclear stress test, suggesting inferior ischemia. No cardiac catheterization to confirm coronary artery di sease. The patient has been stable without ACS symptomatology or CHF. He does have chronic renal in sufficiency, which has limited his workup at this point. His blood pressures remain orthostatic. Be ta codi is being held at this time. ALLERGIES: No known allergies. MEDS: See reconciliation form. PAST HISTORY: Paroxysmal atrial fibrillation with chronic stable rhythm by patient report for a numb er of years. History of orthostatic hypotension. History of amyloidosis, at least 5 years, with chr onic renal insufficiency. FAMILY HISTORY: Noncontributory. SOCIAL HISTORY: He is active. Nonsmoker. Does not have alcohol abuse issues. EXAM: VITAL SIGNS: Blood pressure is in the 120-140 systolics, which can drop to the 90s upon risin g. He has been monitored in normal sinus rhythm. GENERAL: He is a middle-aged elderly male, in no a cute distress. He is resting comfortably. HEENT: Moist oropharynx. NECK: Supple. BACK: Clear. CARDIOVASCULAR: Regular rate and rhythm. No murmurs, gallops, or rub. ABDOMEN: Soft, nontender. MUSCULOSKELETAL: Showed no cyanosis, clubbing, or edema. LABS: White count of 8, hemoglobin is 16, potassium 4.2, creatinine 1.7. Troponins are normal. INR is 2.04. ASSESSMENT: 1. Dizziness. Suspect lacunar infarcts in the cerebellum may be playing a role. Patient denies any history of symptomatic atrial fibrillation. He has been maintained on Coumadin and aspirin for quit e some time. We will repeat an echocardiogram to further evaluate. I do not hear murmurs on exam. Patient gives no history of fever, chills, night sweats. Patient has been on longstanding amiodarone as well. Continue telemetry. 2. Orthostatic hypotension may be influencing his situation as well. The patient recently had beta blockers changed from lisinopril to carvedilol in increasing dosages, per Dr. Horne and Dr. Noah abdalla. At this point, he will be seen by Dr. Leal. At this point, I recommend beta blockade at a lo wer dose. Possibly allowing his blood pressure to be somewhat higher will help cerebral perfusion. He is not having any ACS symptomatology. 3. Questionable history of ischemia on nuclear stress test. Never documented ACS, but patient does not give any history of ongoing ACS symptomatology at this time. PLAN: Await Renal consult. Agree with beta codi. RECOMMENDATIONS: 1. If okay with Dr. Leal, I would probably go back to the carvedilol 25 mg p.o. twice daily, bu t I will let him have his input as well. 2. We will check an echocardiogram. 3. Continue telemetry monitoring. 4. Patient's questions are answered. /[id number]/MODL
[2016-07-14] MEDS ORDERED: NS 1,000 ML IV SCH (11:45)
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
--- NOTE | 2016-07-14 14:38 | HOSPPROG ---
Hospitalist Progress Note Assessment/Plan: 75-year-old male presents with acute vertiginous symptoms in the setting of chronic kidney disease stage 3 and known amyloid disorder. Discussed with Dr. Krueger. Plan: 1. Dizziness -carotid and posterior circulation ultrasounds are abnormal, reviewed with Dr. Krueger -MRA of the head and neck secondary to chronic kidney disease -orthostatic given his history of medication adjustments in the context of his symptom onset -meclizine and Valium have not provided symptom relief -Zofran and Phenergan for nausea relief -physical therapy with Priscilla maneuver, failed see report, not BPPV -posterior CVA ruled out with MRI 2. Chronic kidney disease stage 3. Secondary to amyloid, baseline 1.9-2.4 -continue to monitor creatinine level -nephrology consult, discussed with Dr. Leal -PVR and bladder scan 3. Chronic hypertension. Hold home medications, continue to monitor blood pressure, check orthostatics as outlined above -appreciate cardiology consult patient's primary chemical engraver is Jeferson Mars 4. Atrial fibrillation. Unclear type, continue home medications Chronic anticoagulation 5. Leukocytosis. Resolved 6. Left hand numbness -intermittent -worse when sitting at the edge of the bed 7. Dehydration -cont fluids Diet. Renal Prophylaxis. Moderate risk, on Coumadin and aspirin Code. Full Disposition. Patient requires more aggressive in-house evaluation Subjective: Continues to feel dizzy. Weak and unable to ambulate and apparently independently. Having complaints of minimal urine output. Objective: Vital Signs Temp Pulse Resp BP Pulse Ox 37.2 C 82 16 105/64 95 07/14/16 08:00 07/14/16 08:00 07/14/16 08:00 07/14/16 10:49 07/14/16 08:00 07/13/16 07/14/16 07/15/16 05:59 05:59 05:59 Intake Total 1140 Output Total 500 Balance 640 PT 23.2 SEC (12.0-15.0) H 07/13/16 04:50 INR 2.04 (0.83-1.16) H 07/13/16 04:50 - Physical Exam Constitutional: appears nourished, chronically ill appearing, uncomfortable Eyes: PERRL, anicteric sclera, EOMI Ears, Nose, Mouth, Throat: moist mucous membranes, hearing normal, ears appear normal Cardiovascular: No JVD, No tachycardia, No edema Respiratory: no respiratory distress, no rales or rhonchi, reduced air movement Gastrointestinal: No tenderness, No ascites, No guarding Skin: warm, normal color, No erythema Musculoskeletal: normal joint ROM, abnormal gait, generalized weakness Neurologic: AAOx3 Psychiatric: interacting appropriately, not anxious, not encephalopathic ICD10 Worksheet Patient Problems: Problems Problem Status Diagnosed AL amyloid nephropathy Acute Multiple myeloma Acute Renal failure Acute Renal failure (ARF), acute on chronic Acute Vertigo Acute multiple Acute
[2016-07-14] MEDS ORDERED: PROMETHAZINE HCL 25 MG/ML VIAL IVP PRN (16:14)
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
[2016-07-14] MEDS: CARVEDILOL 6.25 MG TAB PO SCH (18:36)
[2016-07-14] MEDS: CHOLECALCIFEROL VIT D3 2,000 UNITS TAB/CAP PO SCH (20:38)
[2016-07-14] MEDS: CETIRIZINE 10 MG TAB PO SCH (20:38)
[2016-07-14] MEDS: WARFARIN SODIUM 5 MG TAB PO SCH (20:38)
[2016-07-15 05:33] LABS: % IMMATURE GRANULYOCYTES 0.5 % (0.0-1.1); ABSOLUTE IMMATURE GRANULOCYTES 0.04 10^3/uL (0.00-0.10); ADD DIFF? NO; ADD MORPH? NO; ADD SCAN? NO; ATYPICAL LYMPHOCYTE FLAG 10 (0-99); FRAGMENT RBC FLAG 0 (0-99); HEMATOCRIT 41.3 % (40.0-51.0); HEMOGLOBIN 14.9 g/dL (13.7-17.5); LEFT SHIFT FLG 0 (0-99); LIPEMIA HEMOLYSIS FLAG 90 (0-99); MEAN CELL HEMOGLOBIN 33.8 pg (27.9-34.1); MEAN CELL HEMOGLOBIN CONCENTR. 36.1 g/dL (32.4-36.7); MEAN CELL VOLUME 93.7 fL (81.5-99.8); PLATELET CLUMPS FLAG 0 (0-99); PLATELET COUNT 163 10^3/uL (150-400); RED BLOOD CELL COUNT 4.41 10^6/uL (4.40-6.38); RED CELL DISTRIBUTION WIDTH 12.4 % (11.5-15.2)
[2016-07-15 05:45] LABS: INR 2.54 (0.83-1.16); PROTIME(PATIENT) 27.6 SEC (12.0-15.0)
[2016-07-15 05:48] LABS: ANION GAP 7 mEq/L (8-16); CALCIUM 8.2 mg/dL (8.5-10.4); CARBON DIOXIDE 25 mEq/l (22-31); CHLORIDE 102 mEq/L (97-110); CREATININE 1.6 mg/dL (0.7-1.3); GLOMERULAR FILTRATION RATE 42; GLUCOSE 105 mg/dL (70-100); POTASSIUM 3.9 mEq/L (3.5-5.2); SODIUM 134 mEq/L (134-144)
[2016-07-15] MEDS: SODIUM BICARBONATE 650 MG TAB PO SCH ×2 (08:09→20:31)
[2016-07-15] MEDS: ATORVASTATIN CALCIUM 10 MG TAB PO SCH (08:09)
[2016-07-15] MEDS: AMIODARONE HCL 200 MG TAB PO SCH (08:09)
[2016-07-15] MEDS: ASPIRIN EC 81 MG TAB PO SCH (08:09)
[2016-07-15] MEDS: PANTOPRAZOLE SODIUM 40 MG TAB PO SCH (08:09)
[2016-07-15] MEDS: CARVEDILOL 6.25 MG TAB PO SCH ×2 (08:09→18:29)
[2016-07-15] MEDS: ISOSORBIDE MONONITRATE 30 MG TAB.SR PO SCH (08:09)
[2016-07-15] MEDS ORDERED: FUROSEMIDE 40 MG TAB PO SCH (09:00)
[2016-07-15] MEDS ORDERED: CALCITRIOL 0.25 MCG CAP PO SCH (09:00)
--- NOTE | 2016-07-15 09:54 | ECHO ---
[id number] + + [address] : : [place] [address] : : [phone] + + Adult Echocardiographic Report + --+ :Name: CRYSTAL GUZMAN Sade Date: 07/15/2016 07:28 AM : : Hospital Admission Number: [id number] Location: 3 91: :: 1940 Gender: Male Height: 73 in : :Age: 75 yrs Race: WH Weight: 196 lb : :Reason For Study: Looking for embolic source : : BSA: 2.1 meters2 : :History: Atrial fibrillation : + --+ MMode/2D Measurements & Calculations IVSd: 0.69 cm LVIDd: 5.2 cm FS: 44.9 % Ao root diam: 4.0 cm LVPWd: 0.83 cm LVIDs: 2.9 cm EDV(Teich): 132.1 ml LA dimension: 3.6 cm ESV(Teich): 32.0 ml EF(Teich): 75.8 % Normal Measurement Values: + + :LVIDd (3.5-5.7cm) IVSd (0.6-1.1cm) LVPWd (0.6-1.1cm) Aortic Root (2.0-3.7cm)Left Atrium (1.5-4.0cm): :LV Vol(d) (76-115ml) LV Vol(s) (29-48ml) Ejec Fraction (50-65%)PV Lavelle (0.6- 1.2m/s) TV Lavelle (0.4-1.0m/s) : :MV E Lavelle (0.8-1.0m/s)MV A Lavelle (0.3-1.0m/s)LVOT Lavelle (0.7-1.2m/s) Asc Ao Lavelle ( 0.9-1.8m/s) : + + Doppler Measurements & Calculations MV E max lavelle: 60.7 cm/sec Ao V2 max: 107.2 cm/sec MV A max lavelle: 85.4 cm/sec Ao max P.6 mmHg MV E/A: 0.71 Left Ventricle The left ventricle is normal in size and function. There is normal left ventricular wall thickness. Left ventricular systolic function is normal. Ejection Fraction = 60-65%. There is Doppler evidence for diastolic dysfunction. No regional wall motion abnormalities noted. Right Ventricle The right ventricle is normal in size and function. Atria The left atrial size is normal. Right atrial size is normal. The interatrial septum is intact with no evidence for an atrial septal defect. Mitral Valve The mitral valve is normal in structure and function. There is no evidence of mitral valve prolapse. There is no mitral valve stenosis. Tricuspid Valve Normal tricuspid valve. Aortic Valve The aortic valve opens well. There is no aortic stenosis. There is no aortic insufficiency. Pulmonic Valve The pulmonic valve is normal in structure and function. There is no pulmonic valvular regurgitation. Great Vessels The aortic root is normal size. Pericardium/Pleural There is no pericardial effusion. There is a fat pad seen. Conclusion A complete two-dimensional transthoracic echocardiogram was performed (2D, M-mode, Doppler and color flow Doppler). The study was technically difficult. nocardiac sourse of emboli noted on this study. The left ventricle is normal in size and function. Left ventricular systolic function is normal. Ejection Fraction = 60-65%. There is Doppler evidence for diastolic dysfunction. There is a fat pad seen. 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
--- NOTE | 2016-07-15 10:02 | SOAPPROG ---
SOAP Progress Note Assessment/Plan: Assessment:1. orthostatic hypotension..agree with low dose BB for control of htn 2.pafib..on chronic coumadinn and amoidarone ..now evidence of afib 3. cerebellar infarcts...? etiology ..2d echo looks ok today without JW Plan:1. no changes today from a cardiac standpoint 07/15/16 09:59 Subjective: pt is feeling better today...no JW on echo..pt remains in nsr..b/p's ok..agree with low dose BB for htn and close attention to volume status Objective: Vital Signs Temp Pulse Resp BP Pulse Ox 37.4 C 64 18 143/83 H 92 07/15/16 08:00 07/15/16 08:09 07/15/16 08:00 07/15/16 08:09 07/15/16 08:00 Laboratory Results 07/15/16 04:56 07/15/16 04:56 07/14/16 07/15/16 07/16/16 05:59 05:59 05:59 Intake Total 1140 500 Output Total 500 1400 Balance 640 -900 PT 27.6 SEC (12.0-15.0) H 07/15/16 04:56 INR 2.54 (0.83-1.16) H 07/15/16 04:56 Physical Exam - Physical Exam Respiratory: lungs clear Cardiac/Chest: regular rate, rhythm, No gallop, No JVD ICD10 Worksheet Patient Problems: Problems Problem Status Diagnosed AL amyloid nephropathy Acute Multiple myeloma Acute Renal failure Acute Renal failure (ARF), acute on chronic Acute Vertigo Acute multiple Acute
--- NOTE | 2016-07-15 10:46 | SOAPPROG ---
SULAIMAN Progress Note Assessment/Plan: Assessment: 1. Orthostasis, Dizziness I questioned patient about this again today. He does not recall having issues with orthostasis prior to June. Thus, while he may have amyloid related peripheral neuropathy, this hasn't been such an issue that he has required specific treatment for this. Thus, the main issue seems to be his anorexia which led to poor fluid and solute intake while maintaining his same anti hypertensives. His readings look better. We will see how he does today when up and around. If his BP's are good, and he remains symptomatic, then this may be a more primary central [employer] issue. Dr. Krueger's note reviewed. Will follow his progress. He has tolerated carvedilol in past. Will leave him on this and change to metoprolol if needed 2. Renal Function Stable Plan: 07/15/16 10:37 Objective: Vital Signs Temp Pulse Resp BP Pulse Ox 37.4 C 67 18 138/79 H 92 07/15/16 08:00 07/15/16 10:13 07/15/16 08:00 07/15/16 10:13 07/15/16 08:00 Laboratory Results 07/15/16 04:56 07/15/16 04:56 07/14/16 07/15/16 07/16/16 05:59 05:59 05:59 Intake Total 1140 500 Output Total 500 1400 Balance 640 -900 PT 27.6 SEC (12.0-15.0) H 07/15/16 04:56 INR 2.54 (0.83-1.16) H 07/15/16 04:56 Physical Exam - Physical Exam General Appearance: no apparent distress Respiratory: lungs clear Cardiac/Chest: regular rate, rhythm Extremities: normal inspection Neuro/Psych: oriented x 3 ICD10 Worksheet Patient Problems: Problems Problem Status Diagnosed AL amyloid nephropathy Acute Multiple myeloma Acute Renal failure Acute Renal failure (ARF), acute on chronic Acute Vertigo Acute multiple Acute
--- NOTE | 2016-07-15 15:45 | HOSPPROG ---
Hospitalist Progress Note Assessment/Plan: * Vertigo - possible cerebellar CVA on 2nd MRI -ASA, warfarin * Intramural hematoma of left carotid bulb - without significant carotid stenosis -query whether carotid bulb injury may be contributing to his orthostasis causing autonomic instability -likely caused by traumatic injury with recent fall -continue anti-coagulation -f/u vascular 4-8 weeks * Amyloidosis * CKD - at baseline creatinine * HTN -likely on too much meds - reduce doses * Afib -coreg, amiodarone -therapeutic on warfarin Subjective: Still very dizzy with the slightest head movement Objective: Vital Signs Temp Pulse Resp BP Pulse Ox 36.9 C 73 18 101/60 93 07/15/16 11:58 07/15/16 11:58 07/15/16 11:58 07/15/16 11:58 07/15/16 11:58 Laboratory Results 07/15/16 04:56 07/15/16 04:56 07/14/16 07/15/16 07/16/16 05:59 05:59 05:59 Intake Total 1140 500 300 Output Total 500 1400 200 Balance 640 -900 100 PT 27.6 SEC (12.0-15.0) H 07/15/16 04:56 INR 2.54 (0.83-1.16) H 07/15/16 04:56 - Physical Exam Constitutional: no apparent distress, appears nourished, not in pain Cardiovascular: regular rate and rhythym, no murmur, rub, or gallop Respiratory: no respiratory distress, no rales or rhonchi, clear to auscultation Gastrointestinal: normoactive bowel sounds, soft, non-tender abdomen, no palpable masses Skin: no rashes or abrasions, no fluctuance, no induration Neurologic: AAOx3, sensation intact bilaterally Psychiatric: interacting appropriately, not anxious, not encephalopathic, thought process linear ICD10 Worksheet Patient Problems: Problems Problem Status Diagnosed AL amyloid nephropathy Acute Multiple myeloma Acute Renal failure Acute Renal failure (ARF), acute on chronic Acute Vertigo Acute multiple Acute
[2016-07-15] MEDS: CETIRIZINE 10 MG TAB PO SCH (20:31)
[2016-07-15] MEDS: CHOLECALCIFEROL VIT D3 2,000 UNITS TAB/CAP PO SCH (20:32)
[2016-07-15] MEDS ORDERED: WARFARIN SODIUM 2.5 MG TAB PO SCH (21:00)
[2016-07-15 21:56] LABS: COLOR YELLOW; LEUKOCYTE ESTERASE,URINE NEGATIVE (NEGATIVE); NITRITE,URINE NEGATIVE (NEGATIVE)
[2016-07-15 21:58] LABS: MUCUS TRACE /lpf (NONE-1+)
[2016-07-16 05:29] LABS: % IMMATURE GRANULYOCYTES 0.4 % (0.0-1.1); ABSOLUTE IMMATURE GRANULOCYTES 0.03 10^3/uL (0.00-0.10); ADD DIFF? NO; ADD MORPH? NO; ADD SCAN? NO; ATYPICAL LYMPHOCYTE FLAG 0 (0-99); FRAGMENT RBC FLAG 0 (0-99); HEMATOCRIT 40.3 % (40.0-51.0); HEMOGLOBIN 14.3 g/dL (13.7-17.5); LEFT SHIFT FLG 0 (0-99); LIPEMIA HEMOLYSIS FLAG 90 (0-99); MEAN CELL HEMOGLOBIN 33.6 pg (27.9-34.1); MEAN CELL HEMOGLOBIN CONCENTR. 35.5 g/dL (32.4-36.7); MEAN CELL VOLUME 94.6 fL (81.5-99.8); MEAN PLATELET VOLUME 9.2 fL (8.7-11.7); PLATELET CLUMPS FLAG 0 (0-99); PLATELET COUNT 164 10^3/uL (150-400); RED BLOOD CELL COUNT 4.26 10^6/uL (4.40-6.38); RED CELL DISTRIBUTION WIDTH 12.4 % (11.5-15.2)
[2016-07-16 05:40] LABS: INR 2.81 (0.83-1.16); PROTIME(PATIENT) 29.9 SEC (12.0-15.0)
[2016-07-16 05:50] LABS: ALBUMIN 2.9 g/dL (3.5-5.0); ANION GAP 7 mEq/L (8-16); CALCIUM 8.4 mg/dL (8.5-10.4); CARBON DIOXIDE 26 mEq/l (22-31); CHLORIDE 101 mEq/L (97-110); CHOLESTEROL 85 mg/dL (140-220); CHOLESTEROL/HDL RATIO 2.74 RATIO (1.00-4.97); CREATININE 1.7 mg/dL (0.7-1.3); GLOMERULAR FILTRATION RATE 39; GLUCOSE 92 mg/dL (70-100); HIGH DENSITY LIPOPROTEIN 31 mg/dL (40-65); LDL/HDL RATIO 1.16 RATIO (1.00-3.64); LOW DENSITY LIPOPROTEIN 36 mg/dL (80-100); NON-HIGH DENSITY LIPOPROTEIN 54 mg/dL (90-129); POTASSIUM 4.2 mEq/L (3.5-5.2); SODIUM 134 mEq/L (134-144); TRIGLYCERIDE 93 mg/dL (40-150); VERY LOW DENSITY LIPOPROTEINS 18 mg/dL (8-25)
[2016-07-16 07:47] VITALS: RESP 16
[2016-07-16] MEDS: ASPIRIN EC 81 MG TAB PO SCH (09:43)
[2016-07-16] MEDS: SODIUM BICARBONATE 650 MG TAB PO SCH (09:43)
[2016-07-16] MEDS: ATORVASTATIN CALCIUM 10 MG TAB PO SCH (09:43)
[2016-07-16] MEDS: ISOSORBIDE MONONITRATE 30 MG TAB.SR PO SCH (09:44)
[2016-07-16] MEDS: AMIODARONE HCL 200 MG TAB PO SCH (09:44)
[2016-07-16] MEDS: PANTOPRAZOLE SODIUM 40 MG TAB PO SCH (09:46)
--- NOTE | 2016-07-16 09:49 | PDIAF ---
- Diagnosis Diagnosis: possible cerebellar stroke, carotid bulb hemorrhage Code Status: Full Code - Medication Management Discharge Medications: Medications to Continue on Transfer Amiodarone HCl [Pacerone (*)] 200 mg PO DAILY 07/12/16 [Last Taken 07/11/16] Aspirin EC [Aspirin EC 81 mg (*)] 81 mg PO DAILY 07/12/16 [Last Taken 07/11/16] Atorvastatin Calcium [Lipitor 10 mg (*)] 10 mg PO DAILY 07/12/16 [Last Taken ] Calcitriol [Calcitriol (*)] 0.25 mcg PO MWF@09 07/12/16 [Last Taken 07/10/16] Cholecalciferol Vit D3 [Vitamin D3 2000 units tab (OTC)] 2,000 units PO HS 07/12 [Last Taken 07/11/16] Esomeprazole Magnesium [Nexium 24Hr] 22.3 mg PO DAILY 07/12/16 [Last Taken 07/11] Herbals/Supplements -Info Only 1 ea PO AD 07/12/16 [Last Taken Unknown] Isosorbide Mononitrate [Isosorbide Mononitrate ER] 60 mg PO DAILY 07/12/16 [ Last Taken 07/11/16] Methylcellulose (with Sugar) [Citrucel Powder 19 gm (RX)] 1 tsp PO DAILY PRN [Last Taken Unknown] Nitroglycerin [Nitrostat 0.4 mg (*)] 0.4 mg SL Q5M PRN 07/12/16 [Last Taken Unknown] Ondansetron Odt [Zofran Odt 4 mg (*)] 4 mg PO Q4 PRN 07/12/16 [Last Taken Unknown] Sodium Bicarbonate [Na Bicarb] 650 mg PO BID 07/12/16 [Last Taken 07/11/16] Warfarin Sodium [Coumadin 5MG (*)] 2.5 mg PO MWF@07/12/16 [Last Taken ] Warfarin Sodium [Coumadin 5MG (*)] 5 mg PO SUTUTHSA@07/12/16 [Last Taken ] Carvedilol [Coreg (*)] 6.25 mg PO BIDMEAL #0 tab 07/16/16 [Last Taken Unknown] Discharge Medications: Refer to the Discharge Home Medication list for PRN reason. - Orders Services needed: Physical Therapy, Occupational Therapy - Follow Up Care Current Providers and Referrals: Raisa Nguyen MD [Primary Care Provider] - As per Instructions
[2016-07-16] MEDS: CARVEDILOL 6.25 MG TAB PO SCH (09:51)
--- NOTE | 2016-07-16 11:11 | PDCARPN ---
[id number] low dose BB for control of htn--tolerating it well. Orthostatic BP is common for him. He knows to change positions slowly and cautiously. 2.Paroxysmal Atrial Fibrillation..He remains on chronic coumadin and amiodarone ..now evidence of afib 3. cerebellar infarcts...? etiology ..Second ECHO looks ok with no JW Plan: No further recommendations. Will sign off for now. 07/16/16 11:10 07/16/16 15:12 Objective: Vital Signs (8 Hrs) Temp Pulse Pulse Pulse Pulse Resp BP 07/16/16 07:36 37.6 C 63 70 74 64 16 151/83 H BP BP BP Pulse Ox 07/16/16 07:36 129/83 H 107/71 151/83 H 90 L Intake/Output (24 Hrs) 07/15/16 07/16/16 07/17/16 05:59 05:59 05:59 Intake Total 500 770 Output Total 1400 200 Balance -900 570 Intake: Oral (ml) 200 770 IV Intake (ml) 300 Output: Urine (ml) 1400 200 Bedside Commode 300 200 Urinal 900 Toilet 200 Other: Intake Quantity No: antinausea meds provided Sufficient Number of Voids Bedside Commode 1 6 Urinal 1 Toilet 1 1 Bladder Scan Volume (ml) Toilet 305 Post Void Residual Scan Volume (ml) Toilet 161 Number of Emesis 1 Occurrences Result Diagrams: 07/16/16 04:42 07/16/16 05:30 - Physical Exam Constitutional: no apparent distress Cardiovascular: no murmurs, no rubs, irregularly irregular Respiratory: no crackles, no wheezes Skin: warm Neurologic: AAOx3 Psychiatric: cooperative, interactive ICD10 Worksheet Patient Problems: Problems Problem Status Diagnosed AL amyloid nephropathy Acute Multiple myeloma Acute Renal failure Acute Renal failure (ARF), acute on chronic Acute Vertigo Acute multiple Acute
[2016-07-16] MEDS ORDERED: LACTULOSE 20 GM/30 ML UDCUP PO PRN (11:31)
[2016-07-16] MEDS ORDERED: POLYETHYLENE GLYCOL 3350 17 GM PKT PO PRN (11:31)
[2016-07-16] MEDS ORDERED: BISACODYL 10 MG SUPP PR PRN (11:31)
[2016-07-16] MEDS ORDERED: MAGNESIUM HYDROXIDE 30 ML UDCUP PO PRN (11:31)
[2016-07-16 11:34] VITALS: BP 110/62; PULSE 68; TEMP 98.7; O2SAT 91
--- NOTE | 2016-07-16 12:40 | SOAPPROG ---
SOAP Progress Note Assessment/Plan: Assessment:Plan: CKD-baseline 1.5 to 2 -currently 1.7 -lytes okay -Up/Ucr pending -UPIEP pending Orthostasis-SBP goes down from 151 to 107 from supine to standing 07/16/16 12:38 Subjective: appetite a little better the last two days Objective: Vital Signs Temp Pulse Resp BP Pulse Ox 37.1 C 68 16 110/62 91 L 07/16/16 11:32 07/16/16 11:32 07/16/16 11:32 07/16/16 11:32 07/16/16 11:32 Laboratory Results 07/16/16 04:42 07/16/16 05:30 07/15/16 07/16/16 07/17/16 05:59 05:59 05:59 Intake Total 500 770 Output Total 1400 200 Balance -900 570 PT 29.9 SEC (12.0-15.0) H 07/16/16 06:00 INR 2.81 (0.83-1.16) H 07/16/16 06:00 Physical Exam - Physical Exam General Appearance: WD/WN, alert, no apparent distress EENT: normal ENT inspection Neck: normal inspection Respiratory: lungs clear, normal breath sounds, No respiratory distress Cardiac/Chest: regular rate, rhythm, No diastolic murmur, No systolic murmur Abdomen: normal bowel sounds, non-tender, soft Extremities: No swelling ICD10 Worksheet Patient Problems: Problems Problem Status Diagnosed AL amyloid nephropathy Acute Multiple myeloma Acute Renal failure Acute Renal failure (ARF), acute on chronic Acute Vertigo Acute multiple Acute
--- NOTE | 2016-07-16 16:07 | GDS ---
[f rep st] DISCHARGE SUMMARY DISCHARGE DIAGNOSES: 1. Possible cerebellar stroke with vertigo. 2. 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 3. Orthostatic hypotension, suspect autonomic dysregulation. 4. Multiple myeloma. 5. Amyloidosis. 6. Chronic kidney disease. Baseline creatinine 1.6 7. Hypertension. 8. Atrial fibrillation. HISTORY OF PRESENT ILLNESS: The patient is a 75-year-old male who presented with acute dizziness most consistent with vertigo as the room was spinning with nausea and weakness with falls. Symptoms initiated 2 weeks prior to admission and did occur in conjunction with medication adjustment of his antihypertensives under the direction of Dr. Horne. He also had dizziness exacerbation by standing upright, although head movement was also very difficult. This has caused multiple falls and he had extensive bruising on presentation. HOSPITAL COURSE: His situation was medically complex, as there were many competing etiologies that may be contributing to his symptoms, and it was unclear which 1 was the most significant. His initial MRI brain was negative. However, he subsequently got an MR angiogram and on the 2nd study we did see some possible lacunar cerebellar strokes. Interestingly, he was also found to have an intramural hematoma of his left carotid bulb. This did not cause any significant carotid stenosis. I query whether this injury to the carotid bulb may be causing some autonomic dysregulation. He also has amyloidosis and peripheral neuropathy, and had significant orthostatic hypotension with his blood pressure dropping significantly in an upright state. He was also felt to be volume depleted at presentation. Clearly, it is complex regarding which of these issues may be causing his current symptom presentation. He was seen in consultation with Cardiology, Nephrology and Neurology. 1. Vertigo. In treatment of the possible cerebellar stroke, he will continue on his aspirin and warfarin as he was prior to admission. He will need intensive physical and occupational therapy. 2. 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 Neurology felt that 1 of his falls may have resulted in a traumatic injury to the carotid artery. Treatment with anticoagulation which he is already on chronically for atrial fibrillation. They recommend follow up with Vascular Surgery in 4-8 weeks. This intramural hematoma is not causing any significant carotid stenosis at this time. 3. Multiple myeloma and amyloidosis. His multiple myeloma is in remission. Repeat SPEP and UPEP were ordered by Nephrology and are pending at the time of hospital discharge. The amyloidosis has caused chronic kidney disease, although his creatinine has remained stable at baseline throughout his hospitalization. 4. Hypertension. He had recently been switched from metoprolol to Coreg, and this had been relatively aggressively uptitrated to relative quite a high dose. He is also on lisinopril and Norvasc. During the observation period in the hospital, it was clear he was not able to tolerate all that medication and his blood pressure was running on the low side. His Norvasc and lisinopril were completely discontinued. His Coreg dose was reduced dramatically. Neurology had concerns that his switch from metoprolol to carvedilol may be causing some of his symptoms due to the alpha blockade. Cardiology and Nephrology, however felt that reducing the dose of Coreg and making other changes as discussed above would be the best course forward. This can continue to be titrated as an outpatient and be closely followed by all the services. DISCHARGE MEDICATIONS: Please see computer record for full detailed list. New medications: Coreg decreased to 6.25 mg p.o. twice daily. We discontinued Norvasc and lisinopril. ADDITIONAL DISCHARGE INSTRUCTIONS: [facility] PT/ OT as he has continued issues with instability and fall risk and needs further strengthening prior to returning to home with his son. Greater 30 minutes time was spent arranging this discharge. Patient seen and examined by me on day of discharge. /[id number]/MODL [id number]
[2016-07-16] MEDS ORDERED: SENNOSIDES/DOCUSATE SODIUM TAB PO SCH (21:00)
[2016-07-17 13:03] LABS: PEUR A/G RATIO 2.28 % (()); PEUR ALBUMIN 69 % (()); PEUR ALPHA 1-GLOBULIN 6 % (()); PEUR ALPHA 2-GLOBULIN 8 % (()); PEUR BETA-GLOBULIN 9 % (()); PEUR GAMMA-GLOBULIN 7 % (()); PEUR IMPRESSION See Comments (())
== END 2016-07-16 15:01 | DRG 65 ==
LOC: EDUNIT# → F3E 21:35 → OBSVTOIN 07-13 14:25
PROVIDERS: ADMIT Internal Medicine; ATTEND Internal Medicine
DX: I63.9 Cerebral infarction, unspecified (principal); C90.01 Multiple myeloma in remission; E85.9 Amyloidosis, unspecified; N17.9 Acute kidney failure, unspecified; S15.8XXA Injury of other specified blood vessels at neck level, initial encounter; I95.1 Orthostatic hypotension; N18.3 Chronic kidney disease, stage 3 (moderate); G62.9 Polyneuropathy, unspecified; I12.9 Hypertensive chronic kidney disease with stage 1 through stage 4 chronic kidney disease, or unspecified chronic kidney disease; R63.0 Anorexia; I48.2 Chronic atrial fibrillation; R29.6 Repeated falls; Z79.01 Long term (current) use of anticoagulants
CPT/HCPCS: 84156-90; 84166-90; 92610-GN; 97001-GP; 97166-GO; 97530-GP; 97535-GO; G0378; G8978-GP-CK; G8979-GP-CI; G8987-GO-CK; G8988-GO-CI; G8996-GN-CH; G8997-GN-CH; G8998-GN-CH; J2405; J2550